=== PATIENT | male | born 1960 | race Caucasian/White ===

== ENCOUNTER 2019-07-11 21:07 | Inpatient (IN) | payer OTHER ==
[~2019-07-11] VITALS: Ht 172.7 cm; Wt 96.2 kg
[2019-07-11] MEDS ORDERED: SODIUM CHLORIDE 0.9% 1,000 ML IV ONE (21:45)
[2019-07-11] MEDS ORDERED: DEXTROSE 5%-WATER 250 ML BAG IV ONE (22:00)
[2019-07-11] MEDS ORDERED: SODIUM BICARBONATE [ADULT] 8.4% 50 MEQ/50 ML SYRINGE IVP ONE (22:00)
[2019-07-11] MEDS ORDERED: 0.9% SODIUM CHLORIDE 10 ML SYRINGE IVP ONE (22:00)
[2019-07-11] MEDS ORDERED: INSULIN REGULAR, HUMAN 100 UNITS/ML IVP ONE (22:00)
[2019-07-11] MEDS ORDERED: EPINEPHrine 1:10,000 [1 MG/10 ML] SYRINGE IVP ONE (22:00)
[2019-07-11] MEDS ORDERED: SUCCINYLCHOLINE CHLORIDE 20 MG/ML 10 ML VIAL ONE (22:17)
[2019-07-11] MEDS ORDERED: RAPID SEQUENCE KIT [RSI] 1 EACH KIT ONE (22:17)
[2019-07-11] MEDS ORDERED: ROCURONIUM BROMIDE 10 MG/ML 5 ML VIAL ONE (22:17)
[2019-07-11 22:30] LABS: ABG A-A DIFF O2 59.7 mmHg (10-20.0); ABG BASE EXCESS -28.7 mmol/L (-2.0-3.0); ABG CARBOXYHEMOGLOBIN 0.1 % (0.0-1.5); ABG METHEMOGLOBIN 0.6 % (0.0-1.5); ABG OXYGEN CONTENT 15.8 mL/dL (15.0-23.0); ABG OXYGEN SATURATION 95.6 % (95.0-98.0); ABG OXYHEMOGLOBIN 94.9 % (94.0-100.0); ABG PCO2 37 mmHg (35-45); ABG TOTAL HEMOGLOBIN 11.7 G/dL (12.0-18.0); PO2, ARTERIAL BG 125.6 mmHg (84.0-92.0); SOURCE, BLOOD GAS ARTERIAL; TEMPERATURE, FAHRENHEIT, BG 97.5 FAHREN (96.0-98.6)
[2019-07-11] MEDS ORDERED: SODIUM CHLORIDE 0.9% 3,000 ML IV ONE (22:30)
[2019-07-11] MEDS ORDERED: PIPERACILLIN SODIUM/TAZOBACTAM 4.5 GM in DEXTROSE 5%-WATER 100 ML IV ONE (22:30)
[2019-07-11] MEDS ORDERED: PANTOPRAZOLE SODIUM 80 MG in SODIUM CHLORIDE 0.9% 100 ML IV SCH (22:30)
[2019-07-11] MEDS ORDERED: ETOMIDATE 2 MG/ML 10 ML VIAL IVP ONE (22:30)
[2019-07-11] MEDS ORDERED: PANTOPRAZOLE SODIUM 40 MG/VIAL IVP ONE (22:30)
[2019-07-11] MEDS ORDERED: ROCURONIUM BROMIDE 10 MG/ML 5 ML VIAL IVP ONE (22:30)
[2019-07-11 22:31] LABS: ABG HCO3 5.2 mmol/L (22.0-26.0); ABG PH 6.807 (7.35-7.450); O2 DEVICE,BLOOD GAS CANNULA (ROOM AIR); SITE, BLOOD GAS RT RADIAL
[2019-07-11] MEDS ORDERED: NOREPINEPHRINE 4 MG/D5%-WATER 250 ML IV ONE (22:39)
[2019-07-11 22:41] LABS: BASOPHILS % (AUTO) 1.1 % (0.0-2.0); EOSINOPHILS % (AUTO) 0 % (1.0-6.0); HEMATOCRIT 43.4 % (41-53); HEMOGLOBIN 13.3 g/dL (13.5-17.5); LYMPHOCYTES # (AUTO) 2.4 K/uL (1.0-4.8); LYMPHOCYTES % (AUTO) 21.7 % (22.0-44.0); MEAN CORPUSCULAR HGB CONC 30.7 G/dL (31.0-37.0); MEAN CORPUSCULAR VOLUME 107 fL (80-100); MONOCYTES # (AUTO) 0.3 K/uL (0.1-1.0); MONOCYTES % (AUTO) 2.9 % (2.0-9.0); NEUTROPHILS # (AUTO) 8.2 K/uL (1.8-7.7); NEUTROPHILS % (AUTO) 74.3 % (40.0-70.0); PLATELET COUNT (AUTO) 271 K/uL (150-450); RED BLOOD CELL COUNT(AUTO) 4.04 MIL/uL (4.50-5.90); RED CELL DISTRIBUTION WIDTH 15.5 % (11.5-14.5)
[2019-07-11 22:48] LABS: INR 2.1 (0.9-1.1)
[2019-07-11 22:54] LABS: ALANINE AMINOTRANSFERASE 38 U/L (12-78); ALKALINE PHOSPHATASE 192 U/L (46-116); ANION GAP 37 mmol/L (8-16); ASPARTATE AMINOTRANSFERASE 196 U/L (15-37); BILIRUBIN,TOTAL 2.5 mg/dL (0.1-1.0); CALCIUM, TOTAL 7.9 mg/dL (8.8-10.5); CARBON DIOXIDE 10 mmol/L (22-29); CHLORIDE 66 mmol/L (98-107); GLOMERULAR FILTR. RATE CALC 29 mL/min (>60); TOTAL PROTEIN, SERUM 7.5 g/dL (6.4-8.2)
[2019-07-11] MEDS ORDERED: PROPOFOL 1000 MG/ISO-OSM 100 ML IV ONE (22:57)
[2019-07-11 23:09] LABS: PLATELET MORPHOLOGY COMMENT NORMAL
[2019-07-11] MEDS ORDERED: OCTREOTIDE ACETATE 100 MCG/ML VIAL IVP ONE (23:15)
[2019-07-11 23:17] LABS: SODIUM SERUM 113 mmol/L (136-145)
[2019-07-11 23:22] LABS: B-TYPE NATRIURETIC PEPTIDE 34 pg/mL (0-100)
[2019-07-11 23:28] LABS: UREA NITROGEN, BLOOD 22 mg/dL (7-18)
[2019-07-11] MEDS ORDERED: TRANEXAMIC ACID 1,000 MG in DEXTROSE 5%-WATER 50 ML IV ONE (23:30)
[2019-07-11] MEDS ORDERED: CEFUROXIME SODIUM 1.5 GM in DEXTROSE 5%-WATER 50 ML IV ONE (23:30)
[2019-07-11] MEDS ORDERED: VANCOMYCIN HCL 1.5 GM in DEXTROSE 5%-WATER 250 ML IV ONE (23:30)
[2019-07-11] MEDS ORDERED: OCTREOTIDE ACETATE 500 MCG in DEXTROSE 5%-WATER 97.5 ML IV SCH (23:30)
[2019-07-11 23:49] LABS: GLUCOSE,RANDOM 1032 mg/dL (70-110)
[2019-07-11 23:50] LABS: LACTIC ACID 33.4 mmol/L (0.4-2.0)
[2019-07-12] VITALS (12 sets, daily range): BP systolic 90–156; BP diastolic 40–109
[2019-07-12 00:44] LABS: ABG A-A DIFF O2 210.7 mmHg (10-20.0); ABG BASE EXCESS -26.6 mmol/L (-2.0-3.0); ABG CARBOXYHEMOGLOBIN 0.5 % (0.0-1.5); ABG METHEMOGLOBIN 0.4 % (0.0-1.5); ABG OXYGEN CONTENT 19.9 mL/dL (15.0-23.0); ABG OXYGEN SATURATION 97.9 % (95.0-98.0); ABG PCO2 27 mmHg (35-45); ABG TOTAL HEMOGLOBIN 14.4 G/dL (12.0-18.0); PO2, ARTERIAL BG 122.4 mmHg (84.0-92.0); SOURCE, BLOOD GAS ARTERIAL; TEMPERATURE, FAHRENHEIT, BG 88.2 FAHREN (96.0-98.6)
[2019-07-12 00:45] LABS: ABG HCO3 6.9 mmol/L (22.0-26.0); ABG PH 6.958 (7.35-7.450); O2 DEVICE,BLOOD GAS VENTILATOR (ROOM AIR); PEEP,BG 5 cm H2O; SITE, BLOOD GAS RT RADIAL; VT, ABG 600 ml
[2019-07-12] MEDS ORDERED: INSULIN REGULAR, HUMAN 100 UNITS/ML IVP ONE ×2 (00:45→01:30)
[2019-07-12] MEDS ORDERED: PROPOFOL 1000 MG/ISO-OSM 100 ML IV PRN (00:45)
[2019-07-12] MEDS ORDERED: NOREPINEPHRINE 4 MG/D5%-WATER 250 ML IV PRN ×2 (00:45→07:43)
[2019-07-12 00:50] LABS: GLUCOSE,POINT OF CARE > 600 MG/DL (70-110)
[2019-07-12 00:59] LABS: ACETONE,BLOOD NEGATIVE (NEGATIVE)
[2019-07-12 00:59] LABS: APPEARANCE,URINE TURBID (CLEAR); BILIRUBIN,URINE NEGATIVE (NEGATIVE); GLUCOSE, URINE (UA) >=1000 mg/dL (NEGATIVE); KETONES,URINE NEGATIVE (NEGATIVE); LEUKOCYTE ESTERASE ,URINE NEGATIVE (NEGATIVE); NITRATE,URINE NEGATIVE (NEGATIVE); OCCULT BLOOD,URINE LARGE (NEGATIVE); PROTEIN,URINE SEE CONFIRM (NEGATIVE)
[2019-07-12] MEDS ORDERED: ONDANSETRON HCL 4 MG/2 ML VIAL IVP PRN (01:00)
[2019-07-12] MEDS ORDERED: ACETAMINOPHEN 325 MG TABLET PO PRN (01:00)
[2019-07-12] MEDS ORDERED: SODIUM BICARBONATE 150 MEQ in DEXTROSE 5%-WATER 850 ML IV ONE (01:00)
[2019-07-12 01:06] LABS: AMPHET/METH SCREEN,URINE NEGATIVE (NEGATIVE); BARBITURATE SCREEN, URINE NEGATIVE (NEGATIVE); BENZODIAZEPINES SCREEN,URINE POSITIVE (NEGATIVE); CANNABINOID SCREEN,URINE NEGATIVE (NEGATIVE); COCAINE SCREEN,URINE NEGATIVE (NEGATIVE); METHADONE SCREEN, URINE NEGATIVE (NEGATIVE); OPIATE SCREEN,URINE NEGATIVE (NEGATIVE); PHENCYCLIDINE SCREEN,URINE NEGATIVE (NEGATIVE)
[2019-07-12] MEDS ORDERED: DEXTROSE 5%-WATER 1,000 ML IV SCH (01:09)
[2019-07-12] MEDS ORDERED: INSULIN REGULAR, HUMAN 100 UNITS in SODIUM CHLORIDE 0.9% 99 ML IV PRN ×6 (01:09→05:21)
[2019-07-12] MEDS ORDERED: DEXTROSE 50%-WATER 25 GM/50 ML SYRINGE IVP PRN ×3 (01:15→05:30)
[2019-07-12 01:20] LABS: GLUCOSE,POINT OF CARE > 600 MG/DL (70-110)
[2019-07-12] MEDS ORDERED: SODIUM CHLORIDE 0.45% 1,000 ML IV PRN ×2 (01:20→05:21)
[2019-07-12] MEDS ORDERED: DEXTROSE 5%-0.45% SODIUM CHL 1,000 ML IV PRN ×2 (01:20→05:21)
[2019-07-12] MEDS ORDERED: POTASSIUM CHLORIDE 40 MEQ in SODIUM CHLORIDE 0.45% 1,000 ML IV PRN ×2 (01:20→05:21)
[2019-07-12] MEDS ORDERED: POTASSIUM CHL 20 MEQ/0.45% NS 1,000 ML IV PRN ×2 (01:20→05:21)
[2019-07-12] MEDS ORDERED: SODIUM CHLORIDE 0.9% 1,000 ML IV SCH ×2 (01:20→05:21)
[2019-07-12 01:27] LABS: WBC,URINE 0-2 /HPF (0-5)
[2019-07-12 01:28] LABS: AMORPHOUS SEDIMENT,UR Moderate /LPF (None Seen); BACTERIA,URINE Few /HPF (None Seen); SQUAMOUS EPITHELIAL CELL,UR Rare /LPF (None Seen); SULFOSALICYLIC ACID,URINE 1+ (Negative)
[2019-07-12] MEDS ORDERED: INSULIN REGULAR, HUMAN 100 UNITS/ML IVP PRN (01:30)
[2019-07-12] MEDS ORDERED: SODIUM BICARBONATE 150 MEQ in DEXTROSE 5%-WATER 1,000 ML IV ONE (02:45)
[2019-07-12 02:49] LABS: CALCIUM, TOTAL 6.4 mg/dL (8.8-10.5); CREATININE 2.01 mg/dL (0.60-1.30)
[2019-07-12 02:54] LABS: POTASSIUM 2.8 mmol/L (3.5-5.1)
[2019-07-12 02:56] LABS: GLUCOSE,POINT OF CARE > 600 MG/DL (70-110)
[2019-07-12 03:31] LABS: MAGNESIUM 1.9 mg/dL (1.80-2.40); PHOSPHORUS 8.8 mg/dL (2.5-4.9)
[2019-07-12 04:15] LABS: ABG A-A DIFF O2 184.7 mmHg (10-20.0); ABG BASE EXCESS -22.8 mmol/L (-2.0-3.0); ABG CARBOXYHEMOGLOBIN 0.1 % (0.0-1.5); ABG METHEMOGLOBIN 0.3 % (0.0-1.5); ABG OXYGEN CONTENT 18.4 mL/dL (15.0-23.0); ABG OXYGEN SATURATION 98.1 % (95.0-98.0); ABG OXYHEMOGLOBIN 97.7 % (94.0-100.0); ABG PCO2 33 mmHg (35-45); ABG TOTAL HEMOGLOBIN 13.2 G/dL (12.0-18.0); SOURCE, BLOOD GAS ARTERIAL; TEMPERATURE, FAHRENHEIT, BG 97.5 FAHREN (96.0-98.6)
[2019-07-12 04:16] LABS: ABG HCO3 8.9 mmol/L (22.0-26.0); ABG PH 7.012 (7.35-7.450); O2 DEVICE,BLOOD GAS VENTILATOR (ROOM AIR); SITE, BLOOD GAS RT BRACHIAL; VT, ABG 600 ml
[2019-07-12 04:19] LABS: PEEP,BG 5 cm H2O
[2019-07-12] MEDS ORDERED: SODIUM BICARBONATE [ADULT] 8.4% 50 MEQ/50 ML SYRINGE IVP ONE (05:00)
[2019-07-12] MEDS: POTASSIUM CHL 10 MEQ/WATER 50 ML IV PRN ×4 (05:02→07:07)
[2019-07-12 05:38] LABS: HEMATOCRIT 40.7 % (41-53); HEMOGLOBIN 13.2 g/dL (13.5-17.5); MEAN CORPUSCULAR HEMOGLOBIN 32.3 pg (26.0-34.0); MEAN CORPUSCULAR HGB CONC 32.5 G/dL (31.0-37.0); MEAN CORPUSCULAR VOLUME 99 fL (80-100); PLATELET COUNT (AUTO) 122 K/uL (150-450)
[2019-07-12 05:56] LABS: ACETONE,BLOOD NEGATIVE (NEGATIVE); ANION GAP 31 mmol/L (8-16); CALCIUM, TOTAL 6.6 mg/dL (8.8-10.5); CARBON DIOXIDE 15 mmol/L (22-29); CHLORIDE 79 mmol/L (98-107); GLOMERULAR FILTR. RATE CALC 36 mL/min (>60); SODIUM SERUM 125 mmol/L (136-145); UREA NITROGEN, BLOOD 21 mg/dL (7-18)
[2019-07-12 05:56] LABS: GLUCOSE,POINT OF CARE 597 MG/DL (70-110)
[2019-07-12 05:57] LABS: ACETAMINOPHEN < 2 mcg/mL (10-30)
[2019-07-12 05:59] LABS: GLUCOSE,RANDOM 597 mg/dL (70-110); SALICYLATE < 2.8 mg/dL (2.8-20.0)
[2019-07-12 06:03] LABS: BAND NEUTROPHILS % (MANUAL) 11 % (0-5); LYMPHOCYTES % (MANUAL) 24 % (22-44); MONOCYTES % (MANUAL) 3 % (2-9); SEGMENTED NEUTROPHILS % 62 % (40-70)
[2019-07-12] MEDS: INSULIN REGULAR, HUMAN 100 UNITS/ML IVP PRN ×3 (06:17→11:48)
[2019-07-12] MEDS ORDERED: 0.9% SODIUM CHLORIDE 10 ML SYRINGE IVP PRN (07:30)
[2019-07-12] MEDS ORDERED: VANCOMYCIN HCL 1 GM/D5% WATER 200 ML IV ONE (08:00)
[2019-07-12 08:20] LABS: GLUCOSE,POINT OF CARE 471 MG/DL (70-110)
[2019-07-12 08:20] LABS: GLUCOSE,POINT OF CARE > 600 MG/DL (70-110)
[2019-07-12] MEDS ORDERED: VANCOMYCIN HCL 1 GM/D5% WATER 200 ML IV PRN (09:45)
[2019-07-12 09:53] LABS: CALCIUM, TOTAL 6.6 mg/dL (8.8-10.5); CREATININE 2.03 mg/dL (0.60-1.30); POTASSIUM 3.1 mmol/L (3.5-5.1)
[2019-07-12] MEDS: OCTREOTIDE ACETATE 500 MCG in DEXTROSE 5%-WATER 97.5 ML IV SCH ×2 (10:17→19:20)
[2019-07-12] MEDS: PANTOPRAZOLE SODIUM 80 MG in SODIUM CHLORIDE 0.9% 100 ML IV SCH ×2 (10:17→19:20)
[2019-07-12] MEDS: PIPERACILLIN/TAZO 3.375 GM/D5W 50 ML IV SCH ×3 (10:21→21:55)
[2019-07-12] MEDS ORDERED: SODIUM CHLORIDE 0.9% 250 ML IV ONE (11:30)
[2019-07-12] MEDS ORDERED: ROCURONIUM BROMIDE 10 MG/ML 5 ML VIAL IVP ONE (12:00)
[2019-07-12] MEDS ORDERED: ETOMIDATE 2 MG/ML 10 ML VIAL IVP ONE (12:00)
[2019-07-12] MEDS: PHENYLEPHRINE 200 MG/D5%-WATER 250 ML IV PRN (13:32)
[2019-07-12 13:33] LABS: ABG METHEMOGLOBIN 0.3 % (0.0-1.5); SOURCE, BLOOD GAS ARTERIAL; TEMPERATURE, FAHRENHEIT, BG 98.6 FAHREN (96.0-98.6)
[2019-07-12] MEDS: VASOPRESSIN 40 UNITS in DEXTROSE 5%-WATER 98 ML IV PRN (13:34)
[2019-07-12 13:36] LABS: ABG A-A DIFF O2 222.8 mmHg (10-20.0); ABG BASE EXCESS -18.1 mmol/L (-2.0-3.0); ABG CARBOXYHEMOGLOBIN 0.7 % (0.0-1.5); ABG HCO3 11.1 mmol/L (22.0-26.0); ABG OXYGEN CONTENT 16.7 mL/dL (15.0-23.0); ABG OXYGEN SATURATION 91.9 % (95.0-98.0); ABG PCO2 50 mmHg (35-45); PO2, ARTERIAL BG 77.2 mmHg (84.0-92.0)
[2019-07-12] MEDS: NOREPINEPHRINE BITARTRATE 16 MG in DEXTROSE 5%-WATER 234 ML IV PRN (13:36)
[2019-07-12 13:44] LABS: ABG PH 7.023 (7.35-7.450); SITE, BLOOD GAS RT BRACHIAL
[2019-07-12 13:45] LABS: O2 DEVICE,BLOOD GAS VENTILATOR (ROOM AIR); PEEP,BG 5 cm H2O; VT, ABG 500 ml
[2019-07-12 14:13] LABS: HEMATOCRIT 38.9 % (41-53); HEMOGLOBIN 12.8 g/dL (13.5-17.5); MEAN CORPUSCULAR VOLUME 97 fL (80-100); PLATELET COUNT (AUTO) 130 K/uL (150-450); RED BLOOD CELL COUNT(AUTO) 4.01 MIL/uL (4.50-5.90); RED CELL DISTRIBUTION WIDTH 16.5 % (11.5-14.5)
[2019-07-12 14:26] LABS: CALCIUM, TOTAL 6.4 mg/dL (8.8-10.5); CREATININE 2.2 mg/dL (0.60-1.30); MAGNESIUM 1.4 mg/dL (1.80-2.40); POTASSIUM 3.3 mmol/L (3.5-5.1)
[2019-07-12] MEDS: SODIUM BICARBONATE 100 MEQ in DEXTROSE 5%-WATER 1,000 ML IV SCH (14:49)
[2019-07-12 14:53] LABS: BAND NEUTROPHILS % (MANUAL) 18 % (0-5); EOSINOPHILS % (MANUAL) 2 % (1-6); LYMPHOCYTES % (MANUAL) 21 % (22-44); MONOCYTES % (MANUAL) 3 % (2-9); MYELOCYTES % 2 % (0-0); SEGMENTED NEUTROPHILS % 54 % (40-70)
[2019-07-12 15:28] LABS: LACTIC ACID 22.6 mmol/L (0.4-2.0)
[2019-07-12 15:35] LABS: GLUCOSE,POINT OF CARE 364 MG/DL (70-110)
[2019-07-12 15:35] LABS: GLUCOSE,POINT OF CARE 309 MG/DL (70-110)
[2019-07-12 15:36] LABS: GLUCOSE,POINT OF CARE 294 MG/DL (70-110)
[2019-07-12 15:36] LABS: GLUCOSE,POINT OF CARE 256 MG/DL (70-110)
[2019-07-12 15:36] LABS: GLUCOSE,POINT OF CARE 329 MG/DL (70-110)
[2019-07-12 15:44] LABS: ABG A-A DIFF O2 238.9 mmHg (10-20.0); ABG BASE EXCESS -18.4 mmol/L (-2.0-3.0); ABG CARBOXYHEMOGLOBIN 0.2 % (0.0-1.5); ABG HCO3 11.2 mmol/L (22.0-26.0); ABG METHEMOGLOBIN 0.3 % (0.0-1.5); ABG OXYGEN CONTENT 16.6 mL/dL (15.0-23.0); ABG OXYGEN SATURATION 91.1 % (95.0-98.0); ABG OXYHEMOGLOBIN 90.6 % (94.0-100.0); ABG PCO2 41 mmHg (35-45); ABG PH 7.072 (7.35-7.450); PO2, ARTERIAL BG 71.1 mmHg (84.0-92.0); SOURCE, BLOOD GAS ARTERIAL; TEMPERATURE, FAHRENHEIT, BG 98.6 FAHREN (96.0-98.6)
[2019-07-12 15:45] LABS: O2 DEVICE,BLOOD GAS VENTILATOR (ROOM AIR); PEEP,BG 5 cm H2O; SITE, BLOOD GAS RT BRACHIAL; VT, ABG 500 ml
[2019-07-12] MEDS: MetroNIDAZOLE 500 MG/NACL 100 ML IV SCH ×2 (15:58→22:58)
[2019-07-12] MEDS: DOXYCYCLINE HYCLATE 100 MG in DEXTROSE 5%-WATER 100 ML IV SCH (16:49)
[2019-07-12] MEDS ORDERED: MAGNESIUM SULFATE 4 GM/WATER 100 ML IV ONE (17:00)
[2019-07-12 17:42] LABS: CALCIUM, TOTAL 6.5 mg/dL (8.8-10.5); CREATININE 2.15 mg/dL (0.60-1.30); POTASSIUM 3.5 mmol/L (3.5-5.1)
[2019-07-12 17:47] LABS: ALBUMIN 2.2 g/dL (3.4-5.0); BILIRUBIN,DIRECT 4.4 mg/dL (0.00-0.20); BILIRUBIN,TOTAL 5.9 mg/dL (0.1-1.0); TOTAL PROTEIN, SERUM 5.3 g/dL (6.4-8.2)
[2019-07-12] MEDS ORDERED: SODIUM CHLORIDE 0.9% 500 ML IV ONE (17:47)
[2019-07-12] MEDS: HYPROMELLOSE 0.5% 15 ML OPHTHALMIC SOLUTION OU SCH ×2 (19:36→23:58)
[2019-07-12 21:25] LABS: HEMATOCRIT 34.4 % (41-53); HEMOGLOBIN 11.7 g/dL (13.5-17.5); MEAN CORPUSCULAR HEMOGLOBIN 32.3 pg (26.0-34.0); MEAN CORPUSCULAR HGB CONC 33.8 G/dL (31.0-37.0); MEAN CORPUSCULAR VOLUME 95 fL (80-100); RED BLOOD CELL COUNT(AUTO) 3.61 MIL/uL (4.50-5.90)
[2019-07-12 21:42] LABS: CALCIUM, TOTAL 6.3 mg/dL (8.8-10.5); CREATININE 2.21 mg/dL (0.60-1.30); MAGNESIUM 1.7 mg/dL (1.80-2.40); PHOSPHORUS 2.9 mg/dL (2.5-4.9); POTASSIUM 3.3 mmol/L (3.5-5.1)
[2019-07-12] MEDS ORDERED: INFLUENZA VIRUS VACCINE QVS 2019-20 (3YR+)/PF 60 MCG/0.5 ML SYRINGE IM ONE (22:15)
[2019-07-12] MEDS ORDERED: PNEUMOCOCCAL VACCINE POLYVALENT 0.5 ML VIAL [PPSV23] IM ONE (22:15)
[2019-07-12 23:04] LABS: PLATELET COUNT (AUTO) 90 K/uL (150-450)
[2019-07-12 23:07] LABS: BAND NEUTROPHILS % (MANUAL) 23 % (0-5); BASOPHILS % (MANUAL) 1 % (0-2); EOSINOPHILS % (MANUAL) 3 % (1-6); LYMPHOCYTES % (MANUAL) 4 % (22-44); MONOCYTES % (MANUAL) 3 % (2-9); SEGMENTED NEUTROPHILS % 66 % (40-70)
[2019-07-12] MEDS: POTASSIUM CHLORIDE 20 MEQ in NXSTAGE RFP-402 K0/CA3 5,000 ML IRRIG PRN (23:58)
[2019-07-13] VITALS: BP 90/38
[2019-07-13] MEDS: VASOPRESSIN 40 UNITS in DEXTROSE 5%-WATER 98 ML IV PRN ×2 (01:13→19:51)
[2019-07-13] MEDS: NOREPINEPHRINE BITARTRATE 16 MG in DEXTROSE 5%-WATER 234 ML IV PRN ×2 (01:14→15:18)
[2019-07-13 01:26] LABS: CALCIUM, TOTAL 6.4 mg/dL (8.8-10.5); CREATININE 2.15 mg/dL (0.60-1.30); POTASSIUM 3.6 mmol/L (3.5-5.1)
[2019-07-13 01:47] LABS: PHOSPHORUS 2.5 mg/dL (2.5-4.9)
[2019-07-13] MEDS: POTASSIUM CHLORIDE 20 MEQ in NXSTAGE RFP-402 K0/CA3 5,000 ML IRRIG PRN ×3 (02:49→23:22)
[2019-07-13] MEDS: PIPERACILLIN/TAZO 3.375 GM/D5W 50 ML IV SCH ×4 (03:53→21:36)
[2019-07-13] MEDS: DOXYCYCLINE HYCLATE 100 MG in DEXTROSE 5%-WATER 100 ML IV SCH ×2 (03:54→16:14)
[2019-07-13] MEDS: SODIUM BICARBONATE 100 MEQ in DEXTROSE 5%-WATER 1,000 ML IV SCH ×2 (03:54→19:41)
[2019-07-13 04:00] VITALS: BP 121/37
[2019-07-13 04:52] LABS: HEMATOCRIT 33.2 % (41-53); HEMOGLOBIN 11.2 g/dL (13.5-17.5); MEAN CORPUSCULAR HGB CONC 33.6 G/dL (31.0-37.0); MEAN CORPUSCULAR VOLUME 95 fL (80-100); RED BLOOD CELL COUNT(AUTO) 3.49 MIL/uL (4.50-5.90)
[2019-07-13] MEDS: HYPROMELLOSE 0.5% 15 ML OPHTHALMIC SOLUTION OU SCH ×4 (05:05→23:44)
[2019-07-13] MEDS: PANTOPRAZOLE SODIUM 80 MG in SODIUM CHLORIDE 0.9% 100 ML IV SCH ×2 (05:06→17:05)
[2019-07-13] MEDS: OCTREOTIDE ACETATE 500 MCG in DEXTROSE 5%-WATER 97.5 ML IV SCH ×2 (05:06→17:06)
[2019-07-13 05:27] LABS: BILIRUBIN,TOTAL 7.2 mg/dL (0.1-1.0); CALCIUM, TOTAL 6.5 mg/dL (8.8-10.5); CREATININE 2.23 mg/dL (0.60-1.30); MAGNESIUM 1.8 mg/dL (1.80-2.40); PHOSPHORUS 4.4 mg/dL (2.5-4.9); POTASSIUM 4.1 mmol/L (3.5-5.1); TOTAL PROTEIN, SERUM 4.7 g/dL (6.4-8.2)
[2019-07-13 05:30] LABS: PLATELET COUNT (AUTO) 49 K/uL (150-450)
[2019-07-13 05:34] LABS: BAND NEUTROPHILS % (MANUAL) 26 % (0-5); BASOPHILS % (MANUAL) 1 % (0-2); EOSINOPHILS % (MANUAL) 2 % (1-6); LYMPHOCYTES % (MANUAL) 5 % (22-44); MONOCYTES % (MANUAL) 4 % (2-9); SEGMENTED NEUTROPHILS % 62 % (40-70)
[2019-07-13 06:01] LABS: GLUCOSE,POINT OF CARE 112 MG/DL (70-110)
[2019-07-13 06:01] LABS: GLUCOSE,POINT OF CARE 212 MG/DL (70-110)
[2019-07-13 06:01] LABS: GLUCOSE,POINT OF CARE 181 MG/DL (70-110)
[2019-07-13 06:01] LABS: GLUCOSE,POINT OF CARE 113 MG/DL (70-110)
[2019-07-13 06:01] LABS: GLUCOSE,POINT OF CARE 148 MG/DL (70-110)
[2019-07-13 06:01] LABS: GLUCOSE,POINT OF CARE 108 MG/DL (70-110)
[2019-07-13 06:01] LABS: GLUCOSE,POINT OF CARE 116 MG/DL (70-110)
[2019-07-13 06:01] LABS: GLUCOSE,POINT OF CARE 276 MG/DL (70-110)
[2019-07-13 06:01] LABS: GLUCOSE,POINT OF CARE 245 MG/DL (70-110)
[2019-07-13 06:01] LABS: GLUCOSE,POINT OF CARE 192 MG/DL (70-110)
[2019-07-13 06:01] LABS: GLUCOSE,POINT OF CARE 131 MG/DL (70-110)
[2019-07-13 06:01] LABS: GLUCOSE,POINT OF CARE 105 MG/DL (70-110)
[2019-07-13 06:01] LABS: GLUCOSE,POINT OF CARE 94 MG/DL (70-110)
[2019-07-13] MEDS: MetroNIDAZOLE 500 MG/NACL 100 ML IV SCH ×3 (06:17→23:12)
[2019-07-13 08:00] VITALS: BP 115/42
[2019-07-13 08:26] LABS: GLUCOSE,POINT OF CARE 108 MG/DL (70-110)
[2019-07-13] MEDS ORDERED: [UNRECOGNIZED DRUG - REMARK] IV SCH ×4 (09:00)
[2019-07-13 09:47] LABS: ABG A-A DIFF O2 236.2 mmHg (10-20.0); ABG BASE EXCESS -16.8 mmol/L (-2.0-3.0); ABG CARBOXYHEMOGLOBIN 0.6 % (0.0-1.5); ABG HCO3 12.3 mmol/L (22.0-26.0); ABG METHEMOGLOBIN 0.3 % (0.0-1.5); ABG OXYGEN CONTENT 16.3 mL/dL (15.0-23.0); ABG OXYGEN SATURATION 95.7 % (95.0-98.0); ABG OXYHEMOGLOBIN 94.8 % (94.0-100.0); ABG PCO2 37 mmHg (35-45); ABG TOTAL HEMOGLOBIN 12.2 G/dL (12.0-18.0); PO2, ARTERIAL BG 79.7 mmHg (84.0-92.0); SOURCE, BLOOD GAS ARTERIAL; TEMPERATURE, FAHRENHEIT, BG 96.4 FAHREN (96.0-98.6)
[2019-07-13 09:48] LABS: ABG PH 7.135 (7.35-7.450); SITE, BLOOD GAS ARTERIAL LINE
[2019-07-13 09:49] LABS: O2 DEVICE,BLOOD GAS VENTILATOR (ROOM AIR); PEEP,BG 5 cm H2O; VT, ABG 500 ml
[2019-07-13] MEDS: PHENYLEPHRINE 200 MG/D5%-WATER 250 ML IV PRN (10:26)
[2019-07-13] MEDS ORDERED: VANCOMYCIN HCL 1.5 GM in DEXTROSE 5%-WATER 250 ML IV ONE (11:15)
[2019-07-13] MEDS: MIDAZOLAM HCL 200 MG in DEXTROSE 5%-WATER 160 ML IV PRN (11:33)
[2019-07-13 12:00] VITALS: BP 100/39
[2019-07-13 12:05] LABS: HEMATOCRIT 34.1 % (41-53); HEMOGLOBIN 11.3 g/dL (13.5-17.5); MEAN CORPUSCULAR HEMOGLOBIN 31.5 pg (26.0-34.0); MEAN CORPUSCULAR VOLUME 96 fL (80-100); RED BLOOD CELL COUNT(AUTO) 3.57 MIL/uL (4.50-5.90); RED CELL DISTRIBUTION WIDTH 17.4 % (11.5-14.5)
[2019-07-13 12:15] LABS: CALCIUM, TOTAL 6.4 mg/dL (8.8-10.5); CREATININE 2.36 mg/dL (0.60-1.30); POTASSIUM 4.3 mmol/L (3.5-5.1)
[2019-07-13 12:39] LABS: LACTIC ACID 17.2 mmol/L (0.4-2.0)
[2019-07-13 12:58] LABS: C-REACTIVE PROTEIN QUANT 1.92 mg/dL (0.00-0.30)
[2019-07-13 13:01] LABS: GLUCOSE,POINT OF CARE 111 MG/DL (70-110)
[2019-07-13 13:09] LABS: PLATELET COUNT (AUTO) 31 K/uL (150-450)
[2019-07-13 13:18] LABS: BAND NEUTROPHILS % (MANUAL) 51 % (0-5); LYMPHOCYTES % (MANUAL) 4 % (22-44); METAMYELOCYTES % 1 % (0-0); MONOCYTES % (MANUAL) 2 % (2-9); SEGMENTED NEUTROPHILS % 42 % (40-70)
[2019-07-13 15:00] LABS: GLUCOSE,POINT OF CARE 176 MG/DL (70-110)
[2019-07-13 16:00] VITALS: BP 104/36
[2019-07-13 16:10] LABS: GLUCOSE,POINT OF CARE 179 MG/DL (70-110)
[2019-07-13 16:52] LABS: CALCIUM, TOTAL 6.8 mg/dL (8.8-10.5); CREATININE 2.41 mg/dL (0.60-1.30); POTASSIUM 4.3 mmol/L (3.5-5.1)
[2019-07-13 16:52] LABS: GLUCOSE,POINT OF CARE 214 MG/DL (70-110)
[2019-07-13 16:54] LABS: HEMOGLOBIN 10.8 g/dL (13.5-17.5); MEAN CORPUSCULAR HEMOGLOBIN 31.6 pg (26.0-34.0); MEAN CORPUSCULAR HGB CONC 32.8 G/dL (31.0-37.0); MEAN CORPUSCULAR VOLUME 96 fL (80-100); RED BLOOD CELL COUNT(AUTO) 3.42 MIL/uL (4.50-5.90); RED CELL DISTRIBUTION WIDTH 17.5 % (11.5-14.5)
[2019-07-13 17:26] LABS: PLATELET COUNT (AUTO) 26 K/uL (150-450)
[2019-07-13 17:28] LABS: BAND NEUTROPHILS % (MANUAL) 50 % (0-5); LYMPHOCYTES % (MANUAL) 5 % (22-44); MONOCYTES % (MANUAL) 4 % (2-9); SEGMENTED NEUTROPHILS % 41 % (40-70)
[2019-07-13] MEDS: HYDROCORTISONE SOD SUCC 100 MG/2 ML VIAL IVP SCH ×2 (18:00→23:43)
[2019-07-13 18:20] LABS: GLUCOSE,POINT OF CARE 199 MG/DL (70-110)
[2019-07-13] MEDS ORDERED: HEPARIN SODIUM,PORCINE 1,000 UNITS/ML VIAL ONE (18:47)
[2019-07-13 20:00] VITALS: BP 114/32
[2019-07-13] MEDS ORDERED: INSULIN REGULAR, HUMAN 100 UNITS in SODIUM CHLORIDE 0.9% 99 ML IV PRN ×4 (20:00→21:30)
[2019-07-13] MEDS ORDERED: HEPARIN SODIUM,PORCINE 1,000 UNITS/ML VIAL IVP PRN ×2 (20:15)
[2019-07-13 21:11] LABS: GLUCOSE,POINT OF CARE 223 MG/DL (70-110)
[2019-07-13 21:11] LABS: GLUCOSE,POINT OF CARE 219 MG/DL (70-110)
[2019-07-13] MEDS ORDERED: SODIUM CHLORIDE 0.9% 250 ML IV ONE (21:25)
[2019-07-13] MEDS ORDERED: SODIUM CHLORIDE 0.9% 500 ML IV ONE (21:25)
[2019-07-13 21:28] LABS: HEMATOCRIT 30.8 % (41-53); HEMOGLOBIN 10.1 g/dL (13.5-17.5); MEAN CORPUSCULAR HEMOGLOBIN 31.8 pg (26.0-34.0); MEAN CORPUSCULAR HGB CONC 32.9 G/dL (31.0-37.0); MEAN CORPUSCULAR VOLUME 97 fL (80-100); RED BLOOD CELL COUNT(AUTO) 3.18 MIL/uL (4.50-5.90)
[2019-07-13 21:34] LABS: PLATELET COUNT (AUTO) 17 K/uL (150-450)
[2019-07-13 21:36] LABS: CALCIUM, TOTAL 6.6 mg/dL (8.8-10.5); CREATININE 2.43 mg/dL (0.60-1.30); POTASSIUM 4.5 mmol/L (3.5-5.1)
[2019-07-13 22:38] LABS: BAND NEUTROPHILS % (MANUAL) 55 % (0-5); EOSINOPHILS % (MANUAL) 1 % (1-6); LYMPHOCYTES % (MANUAL) 3 % (22-44); MONOCYTES % (MANUAL) 1 % (2-9); SEGMENTED NEUTROPHILS % 40 % (40-70)
[2019-07-13 22:39] LABS: PLATELET MORPHOLOGY COMMENT GIANT PLTS PRESENT
[2019-07-13 23:30] LABS: GLUCOSE,POINT OF CARE 189 MG/DL (70-110)
[2019-07-13 23:30] LABS: GLUCOSE,POINT OF CARE 214 MG/DL (70-110)
[2019-07-13 23:30] LABS: GLUCOSE,POINT OF CARE 169 MG/DL (70-110)
[2019-07-14] VITALS (9 sets, daily range): BP systolic 85–102; BP diastolic 12–34
[2019-07-14 01:05] LABS: GLUCOSE,POINT OF CARE 155 MG/DL (70-110)
[2019-07-14 01:05] LABS: GLUCOSE,POINT OF CARE 179 MG/DL (70-110)
[2019-07-14] MEDS: PHENYLEPHRINE 200 MG/D5%-WATER 250 ML IV PRN ×3 (01:19→23:17)
[2019-07-14] MEDS: PANTOPRAZOLE SODIUM 80 MG in SODIUM CHLORIDE 0.9% 100 ML IV SCH ×3 (01:20→21:23)
[2019-07-14] MEDS: OCTREOTIDE ACETATE 500 MCG in DEXTROSE 5%-WATER 97.5 ML IV SCH ×3 (01:21→21:23)
[2019-07-14 01:25] LABS: CALCIUM, TOTAL 6.4 mg/dL (8.8-10.5); CREATININE 2.41 mg/dL (0.60-1.30); POTASSIUM 4.3 mmol/L (3.5-5.1)
[2019-07-14 02:30] LABS: GLUCOSE,POINT OF CARE 144 MG/DL (70-110)
[2019-07-14] MEDS: DOXYCYCLINE HYCLATE 100 MG in DEXTROSE 5%-WATER 100 ML IV SCH (03:03)
[2019-07-14] MEDS: NOREPINEPHRINE BITARTRATE 16 MG in DEXTROSE 5%-WATER 234 ML IV PRN ×2 (03:05→12:18)
[2019-07-14] MEDS: PIPERACILLIN/TAZO 3.375 GM/D5W 50 ML IV SCH ×2 (03:40→10:16)
[2019-07-14 04:41] LABS: GLUCOSE,POINT OF CARE 133 MG/DL (70-110)
[2019-07-14] MEDS: HYPROMELLOSE 0.5% 15 ML OPHTHALMIC SOLUTION OU SCH ×4 (05:11→23:19)
[2019-07-14] MEDS: HYDROCORTISONE SOD SUCC 100 MG/2 ML VIAL IVP SCH ×4 (05:11→23:22)
[2019-07-14 05:28] LABS: HEMATOCRIT 29.2 % (41-53); HEMOGLOBIN 9.7 g/dL (13.5-17.5); MEAN CORPUSCULAR HEMOGLOBIN 32.2 pg (26.0-34.0); MEAN CORPUSCULAR HGB CONC 33.2 G/dL (31.0-37.0); MEAN CORPUSCULAR VOLUME 97 fL (80-100); RED CELL DISTRIBUTION WIDTH 17.7 % (11.5-14.5)
[2019-07-14 05:44] LABS: CALCIUM, TOTAL 6.8 mg/dL (8.8-10.5); CREATININE 2.39 mg/dL (0.60-1.30); POTASSIUM 4.4 mmol/L (3.5-5.1)
[2019-07-14 06:05] LABS: PLATELET COUNT (AUTO) 12 K/uL (150-450)
[2019-07-14 06:08] LABS: BAND NEUTROPHILS % (MANUAL) 48 % (0-5); LYMPHOCYTES % (MANUAL) 3 % (22-44); MONOCYTES % (MANUAL) 3 % (2-9); MYELOCYTES % 1 % (0-0); SEGMENTED NEUTROPHILS % 45 % (40-70)
[2019-07-14 06:09] LABS: PLATELET MORPHOLOGY COMMENT GIANT PLTS PRESENT
[2019-07-14] MEDS: MetroNIDAZOLE 500 MG/NACL 100 ML IV SCH ×3 (06:31→22:40)
[2019-07-14] MEDS ORDERED: VANCOMYCIN HCL 1.25 GM in DEXTROSE 5%-WATER 250 ML IV SCH (07:00)
[2019-07-14 08:14] LABS: ABG A-A DIFF O2 190.8 mmHg (10-20.0); ABG BASE EXCESS -20.5 mmol/L (-2.0-3.0); ABG CARBOXYHEMOGLOBIN 0.3 % (0.0-1.5); ABG METHEMOGLOBIN 0.4 % (0.0-1.5); ABG OXYGEN CONTENT 14.3 mL/dL (15.0-23.0); ABG OXYGEN SATURATION 97.9 % (95.0-98.0); ABG OXYHEMOGLOBIN 97.2 % (94.0-100.0); ABG PCO2 39 mmHg (35-45); ABG TOTAL HEMOGLOBIN 10.3 G/dL (12.0-18.0); PO2, ARTERIAL BG 122.1 mmHg (84.0-92.0); SOURCE, BLOOD GAS ARTERIAL; TEMPERATURE, FAHRENHEIT, BG 98.6 FAHREN (96.0-98.6)
[2019-07-14 08:17] LABS: ABG HCO3 9.8 mmol/L (22.0-26.0); ABG PH 7.036 (7.35-7.450); O2 DEVICE,BLOOD GAS VENTILATOR (ROOM AIR); SITE, BLOOD GAS ARTERIAL LINE; VT, ABG 500 ml
[2019-07-14 08:18] LABS: PEEP,BG 5 cm H2O
[2019-07-14] MEDS: SODIUM BICARBONATE 100 MEQ in DEXTROSE 5%-WATER 1,000 ML IV SCH ×2 (08:33→20:31)
[2019-07-14 08:42] LABS: GLUCOSE,POINT OF CARE 116 MG/DL (70-110)
[2019-07-14 08:43] LABS: GLUCOSE,POINT OF CARE 86 MG/DL (70-110)
[2019-07-14 08:43] LABS: GLUCOSE,POINT OF CARE 99 MG/DL (70-110)
[2019-07-14] MEDS ORDERED: VANCOMYCIN HCL 1 GM/D5% WATER 200 ML IV PRN (09:00)
[2019-07-14] MEDS ORDERED: SODIUM BICARBONATE [ADULT] 8.4% 50 MEQ/50 ML SYRINGE IVP ONE ×2 (10:00→22:45)
[2019-07-14 10:38] LABS: ALBUMIN 1.5 g/dL (3.4-5.0); BILIRUBIN,TOTAL 5.4 mg/dL (0.1-1.0); CALCIUM, TOTAL 6.6 mg/dL (8.8-10.5); CREATININE 2.36 mg/dL (0.60-1.30); MAGNESIUM 1.6 mg/dL (1.80-2.40); PHOSPHORUS 3.8 mg/dL (2.5-4.9); POTASSIUM 4.8 mmol/L (3.5-5.1); TOTAL PROTEIN, SERUM 3.9 g/dL (6.4-8.2)
[2019-07-14] MEDS ORDERED: DEXTROSE 50%-WATER 25 GM/50 ML SYRINGE IVP PRN (12:00)
[2019-07-14] MEDS: VASOPRESSIN 40 UNITS in DEXTROSE 5%-WATER 98 ML IV PRN (12:17)
[2019-07-14] MEDS ORDERED: VANCOMYCIN HCL 750 MG in DEXTROSE 5%-WATER 250 ML IV ONE (13:00)
[2019-07-14] MEDS ORDERED: *CLINICAL-LEVOFLOXACIN IVPB DOSING CLINICAL ONE (13:15)
[2019-07-14] MEDS ORDERED: *CLINICAL-RX DOSING [ENTER DRUG IN COMMENTS] CLINICAL ONE (13:15)
[2019-07-14] MEDS: INSULIN LISPRO 100 UNITS/ML SQ PRN ×4 (14:04→23:31)
[2019-07-14] MEDS: DOPamine HCL 800 MG/D5%-WATER 250 ML IV PRN ×2 (15:20→22:20)
[2019-07-14] MEDS: MEROPENEM 1 GM in SODIUM CHLORIDE 0.9% 100 ML IV SCH (16:03)
[2019-07-14] MEDS ORDERED: LEVOFLOXACIN 750 MG/D5% WATER 150 ML IV ONE (17:00)
[2019-07-14] MEDS ORDERED: SODIUM CHLORIDE 0.9% 250 ML IV ONE ×3 (17:43→21:55)
[2019-07-14] MEDS: POTASSIUM CHLORIDE 20 MEQ in NXSTAGE RFP-402 K0/CA3 5,000 ML IRRIG PRN ×3 (18:58→22:52)
[2019-07-14] MEDS: ALBUMIN HUMAN 25%-25GM/100ML 100 ML IV SCH (19:30)
[2019-07-14 21:04] LABS: HEMOGLOBIN 8.2 g/dL (13.5-17.5); RED BLOOD CELL COUNT(AUTO) 2.57 MIL/uL (4.50-5.90)
[2019-07-14 21:07] LABS: HEMATOCRIT 25.3 % (41-53); MEAN CORPUSCULAR HGB CONC 32.5 G/dL (31.0-37.0); MEAN CORPUSCULAR VOLUME 99 fL (80-100); RED CELL DISTRIBUTION WIDTH 18.1 % (11.5-14.5)
[2019-07-14 21:09] LABS: PLATELET COUNT (AUTO) 9 K/uL (150-450)
[2019-07-14 21:23] LABS: CALCIUM, TOTAL 6.8 mg/dL (8.8-10.5); CREATININE 2.13 mg/dL (0.60-1.30); POTASSIUM 4.9 mmol/L (3.5-5.1)
[2019-07-14] MEDS ORDERED: SODIUM CHLORIDE 0.9% 500 ML IV ONE (21:55)
[2019-07-14 21:56] LABS: BAND NEUTROPHILS % (MANUAL) 72 % (0-5); LYMPHOCYTES % (MANUAL) 2 % (22-44); METAMYELOCYTES % 2 % (0-0); MONOCYTES % (MANUAL) 3 % (2-9); MYELOCYTES % 1 % (0-0); SEGMENTED NEUTROPHILS % 20 % (40-70)
[2019-07-14 21:59] LABS: PLATELET MORPHOLOGY COMMENT GIANT PLTS PRESENT
[2019-07-15] VITALS (8 sets, daily range): BP systolic 82–105; BP diastolic 27–32
[2019-07-15 00:55] LABS: GLUCOSE,POINT OF CARE 136 MG/DL (70-110)
[2019-07-15 00:55] LABS: GLUCOSE,POINT OF CARE 145 MG/DL (70-110)
[2019-07-15 00:55] LABS: GLUCOSE,POINT OF CARE 245 MG/DL (70-110)
[2019-07-15 00:55] LABS: GLUCOSE,POINT OF CARE 112 MG/DL (70-110)
[2019-07-15 00:55] LABS: GLUCOSE,POINT OF CARE 176 MG/DL (70-110)
[2019-07-15] MEDS: MIDAZOLAM HCL 200 MG in DEXTROSE 5%-WATER 160 ML IV PRN (02:40)
[2019-07-15] MEDS: NOREPINEPHRINE BITARTRATE 16 MG in DEXTROSE 5%-WATER 234 ML IV PRN (02:46)
[2019-07-15] MEDS: MEROPENEM 1 GM in SODIUM CHLORIDE 0.9% 100 ML IV SCH (03:32)
[2019-07-15] MEDS: POTASSIUM CHLORIDE 20 MEQ in NXSTAGE RFP-402 K0/CA3 5,000 ML IRRIG PRN ×3 (04:03→09:18)
[2019-07-15] MEDS: INSULIN LISPRO 100 UNITS/ML SQ PRN ×2 (04:29→08:00)
[2019-07-15 04:36] LABS: GLUCOSE,POINT OF CARE 234 MG/DL (70-110)
[2019-07-15] MEDS: HYPROMELLOSE 0.5% 15 ML OPHTHALMIC SOLUTION OU SCH (05:12)
[2019-07-15] MEDS: HYDROCORTISONE SOD SUCC 100 MG/2 ML VIAL IVP SCH (05:12)
[2019-07-15] MEDS: VASOPRESSIN 40 UNITS in DEXTROSE 5%-WATER 98 ML IV PRN (05:17)
[2019-07-15] MEDS: DOPamine HCL 800 MG/D5%-WATER 250 ML IV PRN (05:18)
[2019-07-15 05:55] LABS: HEMATOCRIT 24.2 % (41-53); HEMOGLOBIN 8.1 g/dL (13.5-17.5); MEAN CORPUSCULAR HEMOGLOBIN 32.6 pg (26.0-34.0); MEAN CORPUSCULAR HGB CONC 33.4 G/dL (31.0-37.0); MEAN CORPUSCULAR VOLUME 97 fL (80-100); PLATELET COUNT (AUTO) 45 K/uL (150-450); RED BLOOD CELL COUNT(AUTO) 2.48 MIL/uL (4.50-5.90); RED CELL DISTRIBUTION WIDTH 18.3 % (11.5-14.5)
[2019-07-15 06:09] LABS: CALCIUM, TOTAL 6.4 mg/dL (8.8-10.5); CREATININE 1.86 mg/dL (0.60-1.30); POTASSIUM 4.7 mmol/L (3.5-5.1); VANCOMYCIN,RANDOM 14.4 mcg/mL (25.0-50.0)
[2019-07-15] MEDS: MetroNIDAZOLE 500 MG/NACL 100 ML IV SCH (06:28)
[2019-07-15 06:56] LABS: BAND NEUTROPHILS % (MANUAL) 40 % (0-5); EOSINOPHILS % (MANUAL) 3 % (1-6); LYMPHOCYTES % (MANUAL) 3 % (22-44); METAMYELOCYTES % 3 % (0-0); MONOCYTES % (MANUAL) 2 % (2-9); SEGMENTED NEUTROPHILS % 49 % (40-70)
[2019-07-15] MEDS: ALBUMIN HUMAN 25%-25GM/100ML 100 ML IV SCH (07:59)
[2019-07-15] MEDS: PANTOPRAZOLE SODIUM 80 MG in SODIUM CHLORIDE 0.9% 100 ML IV SCH ×2 (08:01→09:04)
[2019-07-15 08:20] LABS: GLUCOSE,POINT OF CARE 215 MG/DL (70-110)
[2019-07-15] MEDS ORDERED: CALCIUM GLUCONATE 100 MG/ML 10 ML IVP ONE (09:00)
[2019-07-15] MEDS: OCTREOTIDE ACETATE 500 MCG in DEXTROSE 5%-WATER 97.5 ML IV SCH (09:05)
[2019-07-15 09:31] LABS: ABG A-A DIFF O2 228.8 mmHg (10-20.0); ABG BASE EXCESS -18.8 mmol/L (-2.0-3.0); ABG HCO3 10.8 mmol/L (22.0-26.0); ABG METHEMOGLOBIN 0.4 % (0.0-1.5); ABG OXYGEN CONTENT 11.4 mL/dL (15.0-23.0); ABG OXYGEN SATURATION 96.2 % (95.0-98.0); ABG OXYHEMOGLOBIN 95.8 % (94.0-100.0); ABG PCO2 37 mmHg (35-45); ABG TOTAL HEMOGLOBIN 8.3 G/dL (12.0-18.0); PO2, ARTERIAL BG 88.5 mmHg (84.0-92.0); SOURCE, BLOOD GAS ARTERIAL
[2019-07-15 09:33] LABS: ABG PH 7.093 (7.35-7.450); O2 DEVICE,BLOOD GAS VENTILATOR (ROOM AIR); SITE, BLOOD GAS ARTERIAL LINE
[2019-07-15 09:34] LABS: PEEP,BG 5 cm H2O; SPONTANEOUS VT, BG 495 ml; VT, ABG 500 ml
[2019-07-15] MEDS: SODIUM BICARBONATE 100 MEQ in DEXTROSE 5%-WATER 1,000 ML IV SCH (10:13)
[2019-07-15 10:29] LABS: ALBUMIN 1.6 g/dL (3.4-5.0)
[2019-07-15 11:15] LABS: GLUCOSE,POINT OF CARE 236 MG/DL (70-110)
[2019-07-15] MEDS: PHENYLEPHRINE 200 MG/D5%-WATER 250 ML IV PRN (11:19)
[2019-07-15] MEDS ORDERED: MORPHINE SULFATE 100 MG/NS/PF 100 ML IV PRN (11:30)
[2019-07-15] MEDS ORDERED: VANCOMYCIN HCL 1.5 GM in DEXTROSE 5%-WATER 250 ML IV ONE (13:00)
[2019-07-16] MEDS ORDERED: LEVOFLOXACIN 500 MG/D5% WATER 100 ML IV SCH (17:00)
[2019-07-17 10:07] LABS: LEGIONELLA PNEUMO AG URINE Negative (Negative); ORGANISM ID Not indicated.; S PNEUMO SOURCE Urine; STREP PNEUMONIAE AG URINE Negative (Negative); STREP.PNEUMO BODY FLUID CULT. Not Indicated
== END 2019-07-15 13:33 | disposition expired | DRG 871 ==
LOC: EMS 21:08 → ICU 07-12 00:30
PROVIDERS: ADMIT Internal Medicine; ATTEND Internal Medicine
PROC: 5A1945Z Respiratory Ventilation, 24-96 Consecutive Hours (ICD-10-PCS; principal; 2019-07-12)
PROC: 0BH17EZ Insertion of Endotracheal Airway into Trachea, Via Natural or Artificial Opening (ICD-10-PCS; 2019-07-12)
PROC: 30233L1 Transfusion of Nonautologous Fresh Plasma into Peripheral Vein, Percutaneous Approach (ICD-10-PCS; 2019-07-12)
PROC: 30233N1 Transfusion of Nonautologous Red Blood Cells into Peripheral Vein, Percutaneous Approach (ICD-10-PCS; 2019-07-12)
PROC: 05HM33Z Insertion of Infusion Device into Right Internal Jugular Vein, Percutaneous Approach (ICD-10-PCS; 2019-07-12)
PROC: 30233R1 Transfusion of Nonautologous Platelets into Peripheral Vein, Percutaneous Approach (ICD-10-PCS; 2019-07-14)
DX: A41.9 Sepsis, unspecified organism (principal); E11.10 Type 2 diabetes mellitus with ketoacidosis without coma; N17.0 Acute kidney failure with tubular necrosis; J69.0 Pneumonitis due to inhalation of food and vomit; R65.21 Severe sepsis with septic shock; J96.01 Acute respiratory failure with hypoxia; G93.41 Metabolic encephalopathy; K92.2 Gastrointestinal hemorrhage, unspecified; E87.4 Mixed disorder of acid-base balance; E87.1 Hypo-osmolality and hyponatremia; E27.40 Unspecified adrenocortical insufficiency; Z99.11 Dependence on respirator [ventilator] status; E87.6 Hypokalemia; D64.9 Anemia, unspecified; D69.6 Thrombocytopenia, unspecified; E83.51 Hypocalcemia; R57.1 Hypovolemic shock; N18.9 Chronic kidney disease, unspecified; E11.22 Type 2 diabetes mellitus with diabetic chronic kidney disease; F10.229 Alcohol dependence with intoxication, unspecified; D69.59 Other secondary thrombocytopenia; K74.60 Unspecified cirrhosis of liver
CPT/HCPCS: 71045; 80053; 82009; 82805; 83605; 83880; 84484; 85025; 85610; 85730; 87040; 93005; C9113; G0480; J0330; J0697; J1815; J2354; J2543; J2704; J3370; J3490; J7030; J7050; J7060; P9016; 31500; 36556; 36600; 70450; 71250; 72125; 72192; 74150; 76700; 80074; 80320; 82010; 82693; 83735; 83930; 84100; 84145; 86140; 86738; 86850; 86900; 86901; 86920; 86927; 87070; 87081; 87205; 87340; 87449; 87899; 93306; 93970; 94002; 94003; 96365; 96375; 96376; 99291; 99292; G0378; G0481; J0610; J1265; J1644; J1720; J1956; J2185; J2250; J2270; J2370; J3411; J3475; J3480; J7040; P9017; P9035; P9046